=== PATIENT | female | born 1955 | race Caucasian/White ===

== ENCOUNTER 2022-03-30 06:45 | Day surgery (SDC) | payer MEDICARE, OTHER ==
[~2022-03-30 06:45] MED LIST: Lactated Ringers 1,000 ML IV SCH; Lidocaine 1%/Sod Bicarbonate in NS 8.4% 1 ML Syringe IDERM PRN; Sodium Chloride 0.9% 10 ML Syringe FLUSH PRN; Sodium Chloride 0.9% 10 ML Syringe FLUSH SCH
[2022-03-30] MEDS ORDERED: Albuterol/Ipratropium 3.0-0.5 MG/3 ML Neb Soln NEB SCH (07:36)
[2022-03-30] MEDS ORDERED: Propofol 200 MG/20 ML SDV ONE ×2 (07:40→07:43)
[2022-03-30] MEDS ORDERED: Lidocaine 1% 0 ML ONE (08:39)
[2022-03-30] MEDS ORDERED: Lidocaine 1% 4 ML ONE (08:39)
== END 2022-03-30 09:53 | disposition home or self-care (01) ==
LOC: JD.SDS 06:45
PROVIDERS: ATTEND Surgery
DX: Z12.11 Encounter for screening for malignant neoplasm of colon (principal); D12.3 Benign neoplasm of transverse colon; K62.1 Rectal polyp; K64.8 Other hemorrhoids; I10 Essential (primary) hypertension; Z98.890 Other specified postprocedural states; Z79.899 Other long term (current) drug therapy; Z88.0 Allergy status to penicillin; Z88.8 Allergy status to other drugs, medicaments and biological substances; Z87.891 Personal history of nicotine dependence
CPT/HCPCS: 45380; J2704; J7120; 00812; 88305; J7620-GY